=== PATIENT | male | born 1960 | race Caucasian/White ===

== ENCOUNTER 2018-09-26 20:33 | Emergency (ER) | payer BC ==
[~2018-09-26] VITALS: Ht 172.7 cm; Wt 72.6 kg
[2018-09-26 20:36] VITALS: Ht 172.7 cm; Wt 72.6 kg
[2018-09-26 22:02] LABS: microscopic required? YES; urine erythrocyte TRACE (NEGATIVE)
[2018-09-26 23:20] VITALS: BP 144/78
== END 2018-09-26 23:20 | disposition home or self-care (01) ==
LOC: ED 20:33
PROVIDERS: Emergency Medicine
DX: R33.9 Retention of urine, unspecified (principal); K59.00 Constipation, unspecified; G89.18 Other acute postprocedural pain
CPT/HCPCS: J1885